=== PATIENT | male | born 1950 | race Caucasian/White ===

== ENCOUNTER 2017-09-24 09:46 | Inpatient (IN) | payer OTHER, MEDICAID ==
[~2017-09-24] VITALS: Ht 167.6 cm; Wt 93.0 kg
[2017-09-24 09:49] VITALS: Ht 167.6 cm; Wt 93.0 kg
[2017-09-24] MEDS ORDERED: HYDRALAZINE HY100 MG PO (10:20)
[2017-09-24] MEDS ORDERED: LOSARTAN POTASS1 TA8 PO (10:20)
[2017-09-24] MEDS ORDERED: LABETALOL HYDR300 MG PO (10:21)
[2017-09-24] MEDS ORDERED: GLU500 PO (10:22)
[2017-09-24] MEDS ORDERED: EPZICOM1 TAB (10:22)
[2017-09-24 11:27] LABS: BASOPHIL % 0.4 % (0-2); PLATELET COUNT 187 x10^3mcL (130-400)
[2017-09-24 11:36] LABS: CALCIUM 8.7 mg/dL (8.5-10.1); CARBON DIOXIDE 26.8 mmol/L (21-32); CHLORIDE SERUM 104 mmol/L (98-107); CREATININE SERUM 1.1 mg/dL (0.7-1.3); GFR1 > 60 mL/min; GLUCOSE SERUM 126 mg/dL (74-106); POTASSIUM SERUM 3.7 mmol/L (3.5-5.1); SODIUM SERUM 141 mmol/L (136-145)
[2017-09-24 11:39] LABS: ALBUMIN 3.4 g/dL (3.4-5.0); ALKALINE PHOSPHATASE 92 U/L (46-116); ALT/SGPT 27 U/L (16-63); AMYLASE 67 U/L (25-115); AST/SGOT 17 U/L (15-37); BILIRUBIN TOTAL 0.7 mg/dL (0.20-1.00); CHOLESTEROL 171 mg/dL (<200); HDL CHOLESTEROL 35 mg/dL (40-60); LIPASE 124 IU/L (73-393); TOTAL PROTEIN, SERUM 7.3 g/dL (6.4-8.2)
[2017-09-24 13:41] LABS: MAGNESIUM 1.9 mg/dL (1.8-2.4); PHOSPHOROUS 3.6 mg/dL (2.5-4.9)
[2017-09-24 13:42] LABS: T3 TOTAL 1.15 ng/mL
[2017-09-24 13:45] LABS: FREE T4 1.12 ng/dL (0.76-1.46); FREE THYROXINE INDEX 2.3 ug/dL (1.4-4.5); T4(THYROXINE) 7.1 ug/dL (4.7-13.3)
[2017-09-24 13:46] VITALS: BP 146/87
[2017-09-24] MEDS ORDERED: ELIQUIS5 MG PO (16:10)
[2017-09-24 16:49] VITALS: BP 133/91
[2017-09-24 19:20] VITALS: BP 149/45
[2017-09-25 00:40] LABS: microscopic required? NO
[2017-09-25 01:00] LABS: UA SPECIFIC GRAVITY 1.015 (1.005-1.035); urine erythrocyte NEGATIVE (NEGATIVE)
[2017-09-25 01:41] LABS: AMPHETAMINE QUAL UR NONE DETECTED (NEG <=1000)
[2017-09-25 05:00] VITALS: BP 102/72
[2017-09-25 06:26] LABS: BASOPHIL % 0.5 % (0-2); PLATELET COUNT 170 x10^3mcL (130-400); RED CELL DISTRIBUTION WIDTH 14.3 % (11.5-14.5)
[2017-09-25 07:07] LABS: CALCIUM 8.3 mg/dL (8.5-10.1); CARBON DIOXIDE 24.1 mmol/L (21-32); CHLORIDE SERUM 105 mmol/L (98-107); CREATININE SERUM 0.9 mg/dL (0.7-1.3); GFR1 > 60 mL/min; GLUCOSE SERUM 118 mg/dL (74-106); MAGNESIUM 1.9 mg/dL (1.8-2.4); PHOSPHOROUS 3.3 mg/dL (2.5-4.9); POTASSIUM SERUM 3.3 mmol/L (3.5-5.1); SODIUM SERUM 138 mmol/L (136-145)
[2017-09-25 08:39] VITALS: BP 131/80
[2017-09-25 12:07] VITALS: BP 122/82
[2017-09-25 16:22] VITALS: BP 101/63
[2017-09-25 21:56] VITALS: BP 138/87
[2017-09-26 05:46] VITALS: BP 147/80
[2017-09-26 07:02] LABS: BASOPHIL % 0.4 % (0-2); PLATELET COUNT 156 x10^3mcL (130-400); RED CELL DISTRIBUTION WIDTH 14.2 % (11.5-14.5)
[2017-09-26 07:21] LABS: CALCIUM 8.4 mg/dL (8.5-10.1); CARBON DIOXIDE 21.4 mmol/L (21-32); CHLORIDE SERUM 106 mmol/L (98-107); CREATININE SERUM 0.9 mg/dL (0.7-1.3); GFR1 > 60 mL/min; GLUCOSE SERUM 113 mg/dL (74-106); MAGNESIUM 1.8 mg/dL (1.8-2.4); PHOSPHOROUS 3.3 mg/dL (2.5-4.9); POTASSIUM SERUM 3.8 mmol/L (3.5-5.1); SODIUM SERUM 138 mmol/L (136-145)
[2017-09-26 10:55] VITALS: BP 141/90
[2017-09-26 15:17] VITALS: BP 153/96
[2017-09-26 18:11] VITALS: BP 154/101
[2017-09-26 21:54] VITALS: BP 157/95
[2017-09-27 06:03] VITALS: BP 148/91
[2017-09-27 06:29] LABS: BASOPHIL % 0.6 % (0-2); PLATELET COUNT 167 x10^3mcL (130-400); RED CELL DISTRIBUTION WIDTH 14.2 % (11.5-14.5)
[2017-09-27 06:55] LABS: CALCIUM 8.1 mg/dL (8.5-10.1); CARBON DIOXIDE 20.8 mmol/L (21-32); CHLORIDE SERUM 108 mmol/L (98-107); CREATININE SERUM 0.9 mg/dL (0.7-1.3); GFR1 > 60 mL/min; GLUCOSE SERUM 98 mg/dL (74-106); MAGNESIUM 1.8 mg/dL (1.8-2.4); PHOSPHOROUS 3.3 mg/dL (2.5-4.9); POTASSIUM SERUM 3.5 mmol/L (3.5-5.1); SODIUM SERUM 138 mmol/L (136-145)
[2017-09-27 08:20] VITALS: BP 170/96
[2017-09-27 10:19] VITALS: BP 142/89
[2017-09-27 16:15] VITALS: BP 129/82
[2017-09-27 21:14] VITALS: BP 137/65
[2017-09-28 06:43] VITALS: BP 138/87
[2017-09-28 06:55] LABS: BASOPHIL % 0.3 % (0-2); PLATELET COUNT 155 x10^3mcL (130-400)
[2017-09-28 07:08] LABS: CALCIUM 7.9 mg/dL (8.5-10.1); CARBON DIOXIDE 20.8 mmol/L (21-32); CHLORIDE SERUM 109 mmol/L (98-107); GFR1 > 60 mL/min; GLUCOSE SERUM 129 mg/dL (74-106); MAGNESIUM 1.9 mg/dL (1.8-2.4); PHOSPHOROUS 3.3 mg/dL (2.5-4.9); POTASSIUM SERUM 4.1 mmol/L (3.5-5.1); SODIUM SERUM 141 mmol/L (136-145)
[2017-09-28 07:27] LABS: RED CELL DISTRIBUTION WIDTH 14.7 % (11.5-14.5)
[2017-09-28 08:50] VITALS: BP 124/53
[2017-09-28] MEDS ORDERED: NORCO1 TA2 PO (10:19)
[2017-09-28] MEDS ORDERED: COLACE100 MG PO (10:20)
[2017-09-28 13:00] VITALS: BP 137/73
[2017-09-28 13:36] VITALS: BP 137/73
== END 2017-09-28 14:40 | disposition home health service (06) | DRG 493 ==
LOC: ED 09:46 → DU 11:53
PROVIDERS: Emergency Medicine; Family Medicine; Family Medicine Sports Medicine; Neuromusculoskeletal Medicine, Sports Medicine
PROC: 0PSG06Z Reposition Left Humeral Shaft with Intramedullary Internal Fixation Device, Open Approach (ICD-10-PCS; principal; 2017-09-27 12:00)
DX: S42.352A Displaced comminuted fracture of shaft of humerus, left arm, initial encounter for closed fracture (principal); I69.354 Hemiplegia and hemiparesis following cerebral infarction affecting left non-dominant side; I95.1 Orthostatic hypotension; I48.91 Unspecified atrial fibrillation; E11.9 Type 2 diabetes mellitus without complications; I10 Essential (primary) hypertension; M19.90 Unspecified osteoarthritis, unspecified site; E78.5 Hyperlipidemia, unspecified; E66.9 Obesity, unspecified; Z68.29 Body mass index [BMI] 29.0-29.9, adult; Z90.49 Acquired absence of other specified parts of digestive tract; Z79.84 Long term (current) use of oral hypoglycemic drugs; Z79.01 Long term (current) use of anticoagulants; W01.0XXA Fall on same level from slipping, tripping and stumbling without subsequent striking against object, initial encounter; Y92.003 Bedroom of unspecified non-institutional (private) residence as the place of occurrence of the external cause
CPT/HCPCS: 76001; 82962; 83880; 84439; 94150; 97110-GP; 97116-GP; 97530-GP; C1713; J0690; J1170; J1885; J2270; J2405; J2704; J2710; J3010; J3490; J7030; Q0092